=== PATIENT | male | born 1965 | race Asian ===

== ENCOUNTER 2019-11-30 11:16 | Emergency (ER) | payer MEDICARE ==
[~2019-11-30] VITALS: Ht 167.6 cm; Wt 106.6 kg
[2019-11-30] MEDS ORDERED: diphenhydrAMINE HCL 50 MG/ML VIAL ONE (11:46)
[2019-11-30 12:00] LABS: BASOPHILS % (AUTO) 0.5 % (0.0-2.0); HEMATOCRIT 28 % (39-51); HEMOGLOBIN 8.8 g/dL (13.5-17.5); LYMPHOCYTES # (AUTO) 0.9 /CMM (0.8-4.8); LYMPHOCYTES % (AUTO) 12.9 % (20.0-44.0); MEAN CORPUSCULAR HGB CONC 32 g/dl (31.0-36.0); MEAN CORPUSCULAR VOLUME 104 fL (80-96); MONOCYTES # (AUTO) 0.7 /CMM (0.1-1.30); MONOCYTES % (AUTO) 10.2 % (2.0-12.0); NEUTROPHILS # (AUTO) 5.1 /CMM (1.8-8.9); NEUTROPHILS % (AUTO) 74.4 % (43.0-81.0); PLATELET COUNT (AUTO) 362 /CMM (150-450); RED BLOOD CELL COUNT(AUTO) 2.66 MIL/uL (4.5-6.0); WHITE BLOOD COUNT (AUTO) 6.8 K/uL (4.3-11.0)
[2019-11-30] MEDS ORDERED: diphenhydrAMINE HCL 50 MG/ML VIAL IV ONE (12:00)
--- NOTE | 2019-11-30 12:03 | NUR ---
[id number] home c/o dizziness since 10am w/ noted HPB systolic over 200 pt on nightly peritoneal dialysis. Patient a/ox4, breathing even and unlabored, no sob noted. Changed into gown. Dr. Caldwell at bedside for eval.
[2019-11-30 12:25] LABS: CALCIUM, SERUM 8.4 mg/dL (8.5-10.1); CARBON DIOXIDE 25 mmol/L (21-32); CHLORIDE 96 mmol/L (98-107); GLUCOSE 148 mg/dL (74-106); SODIUM SERUM 135 mmol/L (136-145); UREA NITROGEN, BLOOD 75 mg/dL (7-18)
[2019-11-30] MEDS ORDERED: hydrALAZINE HCL IV 20 MG VIAL IV ONE (12:30)
[2019-11-30 12:31] LABS: ALANINE AMINOTRANSFERASE 10 U/L (12-78); ALBUMIN 3.1 g/dL (3.4-5.0); ALKALINE PHOSPHATASE 56 U/L (46-116); ASPARTATE AMINOTRANSFERASE 11 U/L (15-37); BILIRUBIN,DIRECT 0.1 mg/dL (0.0-0.2); BILIRUBIN,TOTAL 0.5 mg/dL (0.2-1.0); TOTAL PROTEIN, SERUM 6.8 g/dL (6.4-8.2)
[2019-11-30 12:33] LABS: CREATININE 11.8 mg/dL (0.6-1.3)
[2019-11-30] MEDS ORDERED: CLONIDINE HCL 0.1 MG TABLET PO ONE (13:00)
[2019-11-30] MEDS ORDERED: MECLIZINE HCL 12.5 MG TABLET PO ONE (13:00)
--- NOTE | 2019-11-30 13:15 | NUR ---
PATIENT RESTING, NO DISTRESS NOTED. VITALS STABLE, DENIES PAIN.
[2019-11-30] MEDS ORDERED: MECLIZINE HCL 25 MG TABLET ONE (13:19)
[2019-11-30] MEDS ORDERED: CLONIDINE HCL 0.1 MG TABLET ONE (13:19)
--- NOTE | 2019-11-30 14:07 | NUR ---
patient's dizziness has improved, vitals stable, no complaints, no distress noted.
--- NOTE | 2019-11-30 14:15 | NUR ---
Patient a/ox4, breathing even and unlabored, no sob noted. IV removed. Catheter intact and site benign. Pressure and 4x4 applied to site. No bleeding noted.Patient discharged to home in stable condition. Written and verbal after care instructions given. Patient verbalizes understanding of instruction.
[2019-11-30 14:17] VITALS: BP 146/103
== END 2019-11-30 14:17 | disposition home or self-care (01) ==
LOC: ER 11:22
DX: I12.0 Hypertensive chronic kidney disease with stage 5 chronic kidney disease or end stage renal disease (principal); E11.22 Type 2 diabetes mellitus with diabetic chronic kidney disease; N18.6 End stage renal disease; R42 Dizziness and giddiness; I45.10 Unspecified right bundle-branch block; E78.00 Pure hypercholesterolemia, unspecified; E66.01 Morbid (severe) obesity due to excess calories; Z68.37 Body mass index [BMI] 37.0-37.9, adult; Z99.2 Dependence on renal dialysis
CPT/HCPCS: 36415; 70450; 71045; 80048; 80076; 84484; 85025; 93005; 96374; 99285; J1200; J8597

== ENCOUNTER 2020-01-30 20:37 | Emergency (ER) | payer MEDICARE, BC ==
[~2020-01-30] VITALS: Ht 167.6 cm; Wt 108.0 kg
--- NOTE | 2020-01-30 21:00 | NUR ---
BIBS FROM HOME TO ER BED 7. AAOX4. NOT IN RESP DISTRESS, BREATHING EVEN AND UNLABORED. AMBULATORY. CAME IN FOR C/O ELEVATED BP FOR THE PAST 3 DAYS. PT REPORTS THAT HIS BP HAS BEEN NOTED WITH SBP OF 180-220s. WITH LAST ONE PRIOR TO ARRIVAL AT 220/118. PT REPORTS THAT HE TOOK CLONIDINE 0.1MG PO X 1HR RESEARCH ENGINEER MARINE EQUIPMENT. PT IS NOTED WITH BP OF 181/121 DURING ASSESSMENT. DENIES ANY CHEST PAIN. PT IS ON PERITONEAL DIALYSIS EVERYDAY. MD HAUSER AT THE BEDSIDE FOR EVAL. AWAITING ORDERS
[2020-01-30] MEDS ORDERED: LABETALOL 20 MG/4 ML VIAL IV ONE (21:15)
[2020-01-30] MEDS ORDERED: LABETALOL HCL IV 100MG VIAL ONE (21:18)
[2020-01-30 21:20] LABS: BASOPHILS # (AUTO) 0.1 /CMM (0.0-0.2); BASOPHILS % (AUTO) 0.8 % (0.0-2.0); EOSINOPHILS % (AUTO) 3.1 % (0.0-6.0); HEMATOCRIT 29 % (39-51); HEMOGLOBIN 9.6 g/dL (13.5-17.5); LYMPHOCYTES # (AUTO) 0.7 /CMM (0.8-4.8); LYMPHOCYTES % (AUTO) 11.5 % (20.0-44.0); MEAN CORPUSCULAR HGB CONC 33 g/dl (31.0-36.0); MEAN CORPUSCULAR VOLUME 102 fL (80-96); MONOCYTES # (AUTO) 0.4 /CMM (0.1-1.30); MONOCYTES % (AUTO) 7.2 % (2.0-12.0); NEUTROPHILS # (AUTO) 4.8 /CMM (1.8-8.9); NEUTROPHILS % (AUTO) 77.4 % (43.0-81.0); PLATELET COUNT (AUTO) 316 /CMM (150-450); RED BLOOD CELL COUNT(AUTO) 2.88 MIL/uL (4.5-6.0); WHITE BLOOD COUNT (AUTO) 6.2 K/uL (4.3-11.0)
--- NOTE | 2020-01-30 21:26 | NUR ---
PT NOTED WITH HR OF 59 ON CADIAC MONITOR. MD MADE AWARE AND ORDERS TO HOLD LABETALOL
[2020-01-30 21:30] LABS: CALCIUM, SERUM 7.5 mg/dL (8.5-10.1); POTASSIUM 4.3 mmol/L (3.5-5.1)
[2020-01-30] MEDS ORDERED: hydrALAZINE HCL IV 20 MG VIAL IV ONE (21:30)
[2020-01-30 21:32] LABS: CREATININE 13.9 mg/dL (0.6-1.3)
[2020-01-30] MEDS ORDERED: NIFEdipine XL (30MG) 30 MG TAB PO STA (21:47)
[2020-01-30] MEDS ORDERED: ENALAPRILAT INJ (1.25 MG/ML) 1.25 MG/ML VIAL IV ONE (21:49)
[2020-01-30] MEDS ORDERED: ENALAPRILAT DIHYD. (2.5MG/ML) 1.25 MG/ML VIAL IV ONE (22:00)
[2020-01-30] MEDS ORDERED: NIFEdipine XL (30MG) 30 MG TAB PO ONE (22:11)
--- NOTE | 2020-01-30 22:20 | NUR ---
PROCARDIA 30MG XL TAKEN FROM ICU OMNICELL
--- NOTE | 2020-01-30 22:51 | NUR ---
PTS BP IS TRENDING DOWN. MEDICALLY CLEARED FOR DISCHARGE. MD AWARE OF BP 173/96. PT RECEIVED PROCARDIA 30MG XL.
--- NOTE | 2020-01-30 22:51 | NUR ---
Note balbir in EDM - 01/30/20 at 2251 by JENN PTS BP IS TRENDING DOWN. MEDICALLY CLEARED FOR DISCHARGE. AWARE OF BP 173/96.
--- NOTE | 2020-01-30 22:52 | NUR ---
Patient discharged to home in stable condition. Written and verbal after care instructions given. Patient verbalizes understanding of instruction.IV removed. Catheter intact and site benign. Pressure and 4x4 applied to site. No bleeding noted. Pt ambulatory with a steady gait
[2020-01-30 22:58] VITALS: BP 173/96
== END 2020-01-30 22:58 | disposition home or self-care (01) ==
LOC: ER 20:42
DX: I12.9 Hypertensive chronic kidney disease with stage 1 through stage 4 chronic kidney disease, or unspecified chronic kidney disease (principal); E11.22 Type 2 diabetes mellitus with diabetic chronic kidney disease; N18.9 Chronic kidney disease, unspecified; D64.9 Anemia, unspecified; I25.10 Atherosclerotic heart disease of native coronary artery without angina pectoris; Z99.2 Dependence on renal dialysis; Z95.5 Presence of coronary angioplasty implant and graft
CPT/HCPCS: 36415; 80048; 85025; 96374; 99285; J3490 ×2

== ENCOUNTER 2021-09-09 20:18 | Inpatient (IN) | payer MEDICARE, OTHER ==
[~2021-09-09] VITALS: Ht 167.6 cm; Wt 114.8 kg
--- NOTE | 2021-09-09 20:40 | NUR ---
BIBS FOR C/O DIZZINESS, NAUSEA AND LOW BP FOR THE PST 10 DAYS. ON DAILY PERTONEAL DIALYSISON DAILY PERITONEAL DIALYSIS; HD PORT TO R ABD. A/OX3. TOLREATING R/A WELL WITH NO SOB AT 99%. CONNECTED PT POX AND MONITOR. SAFETY MEASURES IN PLACE.
--- NOTE | 2021-09-09 21:10 | NUR ---
LAC #20G S/L; PATENT AND INTACT. BLOOD COLLECTED AND SENT TO LAB
--- NOTE | 2021-09-09 21:14 | NUR ---
FINANCIAL SERVICES MANAGER AT PT'S BEDSIDE
[2021-09-09 21:19] LABS: BASOPHILS # (AUTO) 0.1 K/uL (0.0-0.2); BASOPHILS % (AUTO) 0.5 % (0.0-2.0); EOSINOPHILS % (AUTO) 1.2 % (0.0-6.0); HEMATOCRIT 24 % (39-51); HEMOGLOBIN 7.9 g/dL (13.5-17.5); LYMPHOCYTES % (AUTO) 6.2 % (20.0-44.0); MEAN CORPUSCULAR HGB CONC 33 g/dl (31.0-36.0); MEAN CORPUSCULAR VOLUME 100 fL (80-96); MONOCYTES # (AUTO) 0.8 K/uL (0.1-1.30); MONOCYTES % (AUTO) 4.5 % (2.0-12.0); NEUTROPHILS # (AUTO) 14.9 K/uL (1.8-8.9); NEUTROPHILS % (AUTO) 87.6 % (43.0-81.0); PLATELET COUNT (AUTO) 340 K/uL (150-450); RED BLOOD CELL COUNT(AUTO) 2.41 MIL/uL (4.5-6.0)
--- NOTE | 2021-09-09 21:31 | NUR ---
PT RETURNED TO ER BED [address]
[2021-09-09 21:36] LABS: ALBUMIN 2.4 g/dL (3.4-5.0); BILIRUBIN,DIRECT 0.7 mg/dL (0.0-0.2); BILIRUBIN,TOTAL 1.2 mg/dL (0.2-1.0); POTASSIUM 4.1 mmol/L (3.5-5.1); TOTAL PROTEIN, SERUM 7.6 g/dL (6.4-8.2)
[2021-09-09 21:56] LABS: CREATININE 13.8 mg/dL (0.6-1.3)
--- NOTE | 2021-09-09 22:13 | NUR ---
DR. JESSICA DOMÍNGUEZ AT PT'S BEDSIDE
--- NOTE | 2021-09-09 22:41 | NUR ---
PT TAKEN TO CT VIA [facility]
--- NOTE | 2021-09-09 22:51 | NUR ---
COVID SWAB DONE AND SENT TO LAB
[2021-09-09 22:53] LABS: BAND % (MANUAL) 2 % (0.0-5.0); LYMPHOCYTES % (MANUAL) 8 % (16-48)
[2021-09-09 22:54] LABS: MONOCYTES % (MANUAL) 4 % (0-11.0); NEUTROPHILS % (MANUAL) 86 (42-76)
[2021-09-09] MEDS ORDERED: MORPHINE SULFATE INJ 2 MG/ML DISP.SYRIN ONE (23:39)
[2021-09-10] MEDS ORDERED: MORPHINE SULFATE INJ 2 MG/ML DISP.SYRIN IV ONE
[2021-09-10] MEDS ORDERED: MAGNESIUM HYDROXIDE 30 ML UDC PO PRN (01:00)
[2021-09-10] MEDS ORDERED: Z GUARD REMEDY 4 OZ OINT TP PRN (01:00)
[2021-09-10] MEDS ORDERED: ONDANSETRON HCL/PF 4 MG/2 ML VIAL IVP PRN (01:00)
[2021-09-10] MEDS ORDERED: ZOLPIDEM TARTRATE 5 MG TABLET PO PRN (01:00)
[2021-09-10] MEDS ORDERED: MAG HYDROX/AL HYDROX/SIMETH 30 ML UDC PO PRN (01:00)
[2021-09-10] MEDS ORDERED: CEFTRIAXONE 1GM BAG (ER ONLY) 50 ML IV ONE (02:43)
--- NOTE | 2021-09-10 02:44 | NUR ---
OFFERED PT URINAL; NOT ABLE TO PROVIDE URINE SAMPLE AT THIS TIME.
[2021-09-10] MEDS: CEFTRIAXONE 1 G in IV D5W 50 ML IV SCH (02:50)
[2021-09-10] MEDS ORDERED: HYDROCODONE/APAP 10/325MG TABLET ONE ×2 (02:54→07:32)
[2021-09-10] MEDS: HYDROCODONE/APAP 10/325MG TABLET PO PRN ×2 (02:57→07:37)
[2021-09-10] MEDS ORDERED: LABE100T5 PO (03:13)
[2021-09-10] MEDS ORDERED: ALLO300T2 PO (03:13)
[2021-09-10] MEDS ORDERED: DOCU100C36 PO (03:13)
[2021-09-10] MEDS ORDERED: AMLO-213 PO (03:13)
[2021-09-10] MEDS ORDERED: LABE200T5 PO (03:13)
[2021-09-10] MEDS ORDERED: ASPI-1169 PO (03:13)
[2021-09-10] MEDS ORDERED: CLON0.1T PO (03:13)
[2021-09-10] MEDS ORDERED: CALC667T2 PO (03:13)
[2021-09-10] MEDS ORDERED: HYDR-4303 PO (03:13)
[2021-09-10] MEDS ORDERED: LEVO112T2 PO (03:13)
[2021-09-10] MEDS ORDERED: PANT40TA2 PO (03:47)
[2021-09-10] MEDS ORDERED: FOLI0.8T23 PO (03:47)
[2021-09-10] MEDS ORDERED: CINA90TA PO (03:47)
[2021-09-10] MEDS ORDERED: LOVA40TA2 PO (03:47)
[2021-09-10] MEDS ORDERED: LOSA100T31 PO (03:47)
[2021-09-10] MEDS ORDERED: SEMA3TAB (03:47)
[2021-09-10] MEDS ORDERED: SEVE800T8 PO (03:47)
[2021-09-10] MEDS ORDERED: DOCUSATE SODIUM 100 MG CAPSULE PO PRN (05:00)
[2021-09-10] MEDS ORDERED: CLONIDINE HCL 0.1 MG TABLET PO PRN (05:00)
[2021-09-10] MEDS ORDERED: HYDROCODONE/APAP 5/325MG TABLET PO SCH (05:00)
--- NOTE | 2021-09-10 07:42 | NUR ---
ROOM 304-1
[2021-09-10] MEDS ORDERED: PANTOPRAZOLE 40 MG TABLET.DR PO ONE (07:45)
[2021-09-10] MEDS: PANTOPRAZOLE 40 MG TABLET.DR PO SCH ×2 (07:49→10:00)
--- NOTE | 2021-09-10 07:57 | NUR ---
REPORT GIVEN TO MILIND FOR ANA
--- NOTE | 2021-09-10 08:07 | NUR ---
PATIENT TRANSFERRED TO TELE ROOM 304-1.
[2021-09-10] MEDS ORDERED: LABETALOL HCL (100MG) 100 MG TABLET PO SCH (09:00)
[2021-09-10 09:10] VITALS: BP 169/88
[2021-09-10] MEDS ORDERED: DEXTROSE 50%-WATER 50 ML DISP.SYRIN IV PRN (10:00)
[2021-09-10] MEDS: ALLOPURINOL 100 MG TABLET PO SCH (10:00)
[2021-09-10] MEDS: CINACALCET HCL 30 MG TABLET PO SCH (10:02)
[2021-09-10] MEDS: LOSARTAN POTASSIUM 50 MG TABLET PO SCH (10:02)
[2021-09-10] MEDS: SEVELAMER CARBONATE 800 MG TABLET PO SCH ×3 (10:03→18:05)
[2021-09-10] MEDS: VIT B CMPLX 3/FA/VIT C/BIOTIN 1 TAB TABLET PO SCH (10:03)
[2021-09-10] MEDS: ASPIRIN 81 MG TAB.CHEW PO SCH (10:03)
[2021-09-10] MEDS: CALCIUM ACETATE 667 MG CAP/TAB PO SCH ×3 (10:08→18:04)
--- NOTE | 2021-09-10 10:46 | NUR ---
AGRICULTURAL PLOW OPERATOR/MED RECON UPDATED HOME MEDICATION INFORMATION OBTAINED FROM THE PATIENT. DR. SMITH MADE AWARE WITH NEW ORDER. PHARMACY AND PRIMARY RN AWARE.
[2021-09-10 12:00] VITALS: BP 153/81
[2021-09-10] MEDS: BLOOD SUGAR DIAGNOSTIC 1 EACH STRIP IN SCH ×3 (12:05→22:25)
[2021-09-10] MEDS: BLOOD SUGAR DIAGNOSTIC 1 EACH STRIP VI SCH ×2 (12:22→17:55)
[2021-09-10] MEDS: INSULIN REGULAR, HUMAN 100 UNIT/ML 3 ML VIAL SQ PRN (12:31)
[2021-09-10] MEDS: LABETALOL HCL (100MG) 100 MG TABLET PO SCH ×2 (12:35→18:05)
[2021-09-10] MEDS: AMLODIPINE BESYLATE 10 MG TABLET PO SCH (12:36)
[2021-09-10 16:00] VITALS: BP 151/79
[2021-09-10] MEDS: ACETAMINOPHEN 325 MG TABLET PO PRN ×2 (16:34→22:37)
--- NOTE | 2021-09-10 16:40 | NUR ---
dr. davidson in earlier talking to pt. about hemodialysis and temporary cath placement.consents signed.at this time temp 101.7 and given tylenol 650 mg po.no dialysate available for peritoneal dialysis.
--- NOTE | 2021-09-10 16:40 | NUR ---
dr. barrow here and aware of temp.
--- NOTE | 2021-09-10 18:00 | NUR ---
pt with oliguria,no void,still waiting for urine spec.
--- NOTE | 2021-09-10 18:10 | NUR ---
NO SLIDING SCALE COVERAGE AT DINNER PT. NPO.
--- NOTE | 2021-09-10 19:49 | NUR ---
MATERIAL COORDINATOR OPENING RECEIVED PATIENT IN BED, CYMRO SPEAKING. ALERT AND ORIENTED. NO S/S OF APPARENT DISTRESS IN ROOM AIR. DENIES PAIN AT THIS TIME. TELE MONITOR READING SINUS TACH WITH 104 BPM. NO FLUIDS RUNNING AT6 THIS TIME. RE-ORIENTED WITH THE USE OF CALL LIGHT. SAFETY IN PLACE. WILL CONT. WITH PATIENT'S CARE PLAN.
[2021-09-10 19:54] VITALS: BP 148/84
--- NOTE | 2021-09-10 20:00 | NUR ---
NOZZLE WORKER NOTE PATIENT TEMPERATURE 101.9, COOLING MEASURES INITIATED. TYLENOL NOT DUE YET. WILL MONITOR.
[2021-09-10] MEDS: ATORVASTATIN 10 MG TABLET PO SCH (22:20)
[2021-09-10] MEDS: *INSULIN REGULAR(HUMULIN R)HUM 100 UNIT/ML VIAL SQ PRN (23:31)
--- NOTE | 2021-09-10 23:35 | NUR ---
MANAGER PRIMARY NOTE TEMP. WENT DOWN TO 99.2 AFTER TYLENOL AND COOLING MEASURES. WILL CONTINUE TO MONITOR.
[2021-09-10 23:49] VITALS: BP 114/67
[2021-09-11] MEDS: CEFTRIAXONE 1 G in IV D5W 50 ML IV SCH (01:58)
[2021-09-11 04:29] VITALS: BP 135/83
[2021-09-11 06:17] LABS: BASOPHILS % (AUTO) 0.1 % (0.0-2.0); EOSINOPHILS % (AUTO) 1.4 % (0.0-6.0); HEMATOCRIT 23 % (39-51); HEMOGLOBIN 7.7 g/dL (13.5-17.5); LYMPHOCYTES # (AUTO) 0.7 K/uL (0.8-4.8); LYMPHOCYTES % (AUTO) 3.4 % (20.0-44.0); MEAN CORPUSCULAR HGB CONC 33 g/dl (31.0-36.0); MEAN CORPUSCULAR VOLUME 99 fL (80-96); MONOCYTES # (AUTO) 0.8 K/uL (0.1-1.30); MONOCYTES % (AUTO) 4.1 % (2.0-12.0); NEUTROPHILS # (AUTO) 18.9 K/uL (1.8-8.9); PLATELET COUNT (AUTO) 312 K/uL (150-450); RED BLOOD CELL COUNT(AUTO) 2.36 MIL/uL (4.5-6.0); WHITE BLOOD COUNT (AUTO) 20.8 K/uL (4.3-11.0)
[2021-09-11 06:23] LABS: ALBUMIN 2.1 g/dL (3.4-5.0); BILIRUBIN,TOTAL 3.3 mg/dL (0.2-1.0); CALCIUM, SERUM 8.4 mg/dL (8.5-10.1); MAGNESIUM 1.7 mg/dL (1.8-2.4); PHOSPHORUS 6.8 mg/dL (2.5-4.9); POTASSIUM 4.2 mmol/L (3.5-5.1); TOTAL PROTEIN, SERUM 6.7 g/dL (6.4-8.2)
[2021-09-11] MEDS: BLOOD SUGAR DIAGNOSTIC 1 EACH STRIP IN SCH ×4 (06:36→22:24)
[2021-09-11] MEDS: INSULIN REGULAR, HUMAN 100 UNIT/ML 3 ML VIAL SQ PRN (06:37)
--- NOTE | 2021-09-11 06:42 | NUR ---
CHIEF OPERATOR SYNTHESIS NOTE CRITICAL LAB VALUE OF BUN 85, CREATININE 17 REPORTED TO BISQUE KILN DRAWER ANDRES PINEDO NP. NO NEW ORDERS.
--- NOTE | 2021-09-11 07:30 | NUR ---
SHORT ORDER FRY COOK OPENING NOTES RECEIVED PATIENT RESTING ON BED AND A/O X4. ON ROOM AIR TOLERATING WELL. NO SOB NOTED. NOT IN DISTRESS. WITH NO COMPLAINTS OF PAIN OR DISCOMFORT AT THIS TIME. WITH IV ACCESS AT LEFT AC G20 SALINE LOCKED, PATENT AND INTACT. ON TELE MONITOR CURRENTLY READING SINUS RHYTHM WITH BBBs AND PVCs AT 82BPM. SAFETY MEASURES IN PLACED. CALL LIGHT WITHIN REACH. BED ON LOWEST LOCKED POSITION, SIDE RAILS UP X2. WILL CONTINUE TO MONITOR.
[2021-09-11 08:00] VITALS: BP 116/68
[2021-09-11] MEDS: CALCIUM ACETATE 667 MG CAP/TAB PO SCH ×3 (09:15→18:00)
[2021-09-11] MEDS: LABETALOL HCL (100MG) 100 MG TABLET PO SCH ×3 (09:17→17:00)
[2021-09-11] MEDS: AMLODIPINE BESYLATE 10 MG TABLET PO SCH (09:18)
[2021-09-11] MEDS: CINACALCET HCL 30 MG TABLET PO SCH (09:19)
[2021-09-11] MEDS: ALLOPURINOL 100 MG TABLET PO SCH (09:19)
[2021-09-11] MEDS: PANTOPRAZOLE 40 MG TABLET.DR PO SCH ×2 (09:21→16:30)
[2021-09-11] MEDS: ASPIRIN 81 MG TAB.CHEW PO SCH (09:21)
[2021-09-11] MEDS: LEVOTHYROXINE SODIUM 112 MCG TABLET PO SCH (09:21)
[2021-09-11] MEDS: SEVELAMER CARBONATE 800 MG TABLET PO SCH ×3 (09:22→18:00)
[2021-09-11] MEDS: LOSARTAN POTASSIUM 50 MG TABLET PO SCH (09:24)
[2021-09-11] MEDS: VIT B CMPLX 3/FA/VIT C/BIOTIN 1 TAB TABLET PO SCH (09:24)
[2021-09-11 12:00] VITALS: BP 133/67
[2021-09-11 16:04] VITALS: BP 96/57
[2021-09-11] MEDS ORDERED: MORPHINE SULFATE INJ 2 MG/ML DISP.SYRIN IV ONE (17:00)
[2021-09-11] MEDS ORDERED: CELLULOSE,OXIDIZED 1 PKT EACH MC ONE (18:30)
--- NOTE | 2021-09-11 19:05 | NUR ---
CXR confirmed placement of HD catheter, with order OK to use from Julio Jesus. Bleeding still noted from [facility] HD catheter site, Julio Jesus aware per Mandy RN, Judah ROSAS at bedside and placed surgicel to site to stop bleeding. Dr Christian aware and ordered may use catheter for HD treatment tonight..
--- NOTE | 2021-09-11 19:30 | NUR ---
HATCH TENDER CLOSING NOTES PATIENT IN BED ON HEMODIALYSIS THAT STARTED AT 1855. HD CATH INSERTED BY DR. FELIX THIS PM. PT. STARTED TO BLEED FROM THE HD CATH INSERTION SITE A FEW MINUTES AFTER THE HD CATH WAS INSERTED. PRESSURE AND ICE PACK APPLIED. BLEEDING HAVE STOPPED AT THIS TIME. BP AT 109/66 WITH HR OF 77 AT 1915. NO COMPLAINS OF DIZZINESS. PT. IS A/OX4, ABLE TO MAKE NEEDS KNOWN; NO PAIN AT THIS TIME; NO DISTRESS NOTED; PATIENT TOLERATING ROOM AIR WELL, NO SOB NOTED; BREATHING EVEN AND UNLABORED; TELE MONITOR READS NSR AT 75BPM; IV ON LEFT AC #20 SALINE LOCKED, INTACT AND PATENT, FLUSHING WELL; NO S/S OF REDNESS OR INFILTRATION NOTED; SAFETY PRECAUTIONS IMPLEMENTED; BED LOCKED IN LOW POSITION; SIDE RAILSX2, CALL LIGHT WITHIN REACH; WILL ENDORSE CONTINUITY OF CARE TO ONCOMING SHIFT
--- NOTE | 2021-09-11 19:33 | NUR ---
ACCOUNT SERVICE ASSOCIATE NOTE RECEIVED PATIENT IN ROOM CURRENTLY HAVING DIALYSIS. TELE MONITOR READING SR WITH PVC's WILL CONTINUE WITH PATIENT'S CARE PLAN.
[2021-09-11 20:00] VITALS: BP 123/74
--- NOTE | 2021-09-11 21:10 | NUR ---
INFORMATION SECURITY MANAGER NOTE HEMODIALYSIS FINISHED AT THIS TIME. 1L OUT PER SERENE ADAMSON RN. V/S FOLLOWS: 131/69, HR-80, RR-20, T-97.6. PATIENT DENIES PAIN AND ANY DISCOMFORT AT THIS TIME, ENCOURAGED TO VERBALIZED FEELINGS. WILL CARRY OUT POST DIALYSIS ORDERS.
[2021-09-11] MEDS ORDERED: VANCOMYCIN 1 GM in IV D5W 250ml IV ONE (22:00)
--- NOTE | 2021-09-11 22:00 | NUR ---
MECHANICAL SYSTEMS DESIGN ENGINEER NOTE ANDRIY JEFFERSON FROM ICU WENT TO CHECK PATIENT CATHETER SITE, STILL ACTIVELY BLEEDING. PRESSURE DRESSING IN PLACE. WILL CONTINUE TO MONITOR.
[2021-09-11] MEDS: CEFEPIME 1 GM in IV D5W 50 ML IV SCH (22:05)
[2021-09-11] MEDS: ATORVASTATIN 10 MG TABLET PO SCH (22:15)
[2021-09-11] MEDS: *INSULIN REGULAR(HUMULIN R)HUM 100 UNIT/ML VIAL SQ PRN (22:25)
--- NOTE | 2021-09-11 22:56 | NUR ---
EXPERIMENTAL WELDER NOTE PATIENT C/O DIZZINESS. MANAGED TO STOP ACTIVE BLEEDING FROM CATH SITE, PRESSURE AND ICE IN PLACE. V/S: 152/85, HR 89, RR-20, T-98.9. SATURATION 90-93%, STARTED IN 2LPM OF O2 TO KEEP SPO2 >94%. WILL MONITOR FOR NOW.
[2021-09-11 23:03] LABS: HEMOGLOBIN 7.5 g/dL (13.5-17.5)
[2021-09-12] VITALS (7 sets, daily range): BP systolic 131–155; BP diastolic 74–88
[2021-09-12 06:15] LABS: BASOPHILS % (AUTO) 0.3 % (0.0-2.0); EOSINOPHILS % (AUTO) 2.2 % (0.0-6.0); HEMATOCRIT 22 % (39-51); HEMOGLOBIN 7.1 g/dL (13.5-17.5); LYMPHOCYTES # (AUTO) 0.6 K/uL (0.8-4.8); LYMPHOCYTES % (AUTO) 4.8 % (20.0-44.0); MEAN CORPUSCULAR HGB CONC 33 g/dl (31.0-36.0); MEAN CORPUSCULAR VOLUME 98 fL (80-96); MONOCYTES # (AUTO) 0.8 K/uL (0.1-1.30); MONOCYTES % (AUTO) 6.1 % (2.0-12.0); NEUTROPHILS # (AUTO) 11.1 K/uL (1.8-8.9); NEUTROPHILS % (AUTO) 86.6 % (43.0-81.0); PLATELET COUNT (AUTO) 298 K/uL (150-450); RED BLOOD CELL COUNT(AUTO) 2.19 MIL/uL (4.5-6.0); WHITE BLOOD COUNT (AUTO) 12.8 K/uL (4.3-11.0)
[2021-09-12 06:39] LABS: CHOLESTEROL 172 mg/dL (<200); LDL 106 mg/dL (0-99); TRIGLYCERIDES 437 mg/dL (30-150)
[2021-09-12 06:40] LABS: ALANINE AMINOTRANSFERASE 135 U/L (12-78); ALBUMIN 1.9 g/dL (3.4-5.0); ALKALINE PHOSPHATASE 613 U/L (46-116); ASPARTATE AMINOTRANSFERASE 102 U/L (15-37); BILIRUBIN,DIRECT 2.8 mg/dL (0.0-0.2); BILIRUBIN,TOTAL 3.5 mg/dL (0.2-1.0); CALCIUM, SERUM 8.4 mg/dL (8.5-10.1); CARBON DIOXIDE 28 mmol/L (21-32); CHLORIDE 91 mmol/L (98-107); GLUCOSE 139 mg/dL (74-106); LIPASE 542 U/L (73-393); MAGNESIUM 1.9 mg/dL (1.8-2.4); PHOSPHORUS 4.8 mg/dL (2.5-4.9); POTASSIUM 3.8 mmol/L (3.5-5.1); SODIUM SERUM 131 mmol/L (136-145); TOTAL PROTEIN, SERUM 6.2 g/dL (6.4-8.2); UREA NITROGEN, BLOOD 64 mg/dL (7-18)
[2021-09-12 06:47] LABS: CREATININE 13.3 mg/dL (0.6-1.3)
[2021-09-12] MEDS: BLOOD SUGAR DIAGNOSTIC 1 EACH STRIP IN SCH ×4 (06:50→21:48)
[2021-09-12] MEDS: INSULIN REGULAR, HUMAN 100 UNIT/ML 3 ML VIAL SQ PRN ×3 (06:51→17:39)
--- NOTE | 2021-09-12 06:58 | NUR ---
BRUSH HOLDER ASSEMBLER CLOSING NOTE PATIENT IN BED, A/OX4. NO S/S OF APPARENT DISTRESS IN 2LPM OF O2 VIA NC TO KEEP SPO2 >94%. DENIES ANY PAIN AND DISCOMFORT NOR DIZZINESS. PRESSURE DSG IN PLACE, SOILED, OTHERWISE INTACT. BLEEDING OCCURS WHEN PATIENT MOVE A LOT. TELE MONITOR READING SR WITH BBB AND 3 PVC'S THROUGHOUT THE NIGHT. NO FEVER THROUGHOUT SHIFT. NO FLUIDS RUNNING AT THIS TIME. NEEDS ATTENDED. ALL SCHEDULED MEDICATION ADMINISTERED. WILL ENDORSE TO MORNING SHIFT RN FOR CONTINUITY OF CARE.
[2021-09-12 07:42] LABS: HDL CHOLESTEROL < 10 mg/dL (40-60)
--- NOTE | 2021-09-12 08:06 | NUR ---
RN OPENING NOTE PATIENT RECEIVED IN BED, AO X 4, ABLE TO RESPONDS ALL STIMULI. IN NO ACUTE DISTRESS NOTED. RESPIRATORY EVEN AND UNLABORED ON OXYGEN AT 2Ls VIA NC. SKIN IS WARM TO TOUCH, KEEP CLEAN/DRY. NO ACTIVE BLEEDING ON RIGHT JUGULAR VAS CATH AT THIS TIME. KEPT ELEVATED HOB FOR ENSURE AIRWAY AND ASPIRATION PRECAUTION, ALSO LOWEST POSITION OF THE BED, S/R UP X 3, BED ALARM IS ON AT ALL THE TIMES. ALL SAFETY PRECAUTION APPLIED. CALL LIGHT WITHIN REACH, WILL CONTINUE TO MONITOR.
[2021-09-12] MEDS: CINACALCET HCL 30 MG TABLET PO SCH (08:50)
[2021-09-12] MEDS: ALLOPURINOL 100 MG TABLET PO SCH (08:50)
[2021-09-12] MEDS: SEVELAMER CARBONATE 800 MG TABLET PO SCH ×3 (08:50→17:39)
[2021-09-12] MEDS: VIT B CMPLX 3/FA/VIT C/BIOTIN 1 TAB TABLET PO SCH (08:50)
[2021-09-12] MEDS: CALCIUM ACETATE 667 MG CAP/TAB PO SCH ×3 (08:50→17:39)
[2021-09-12] MEDS: PANTOPRAZOLE 40 MG TABLET.DR PO SCH ×2 (08:52→16:30)
[2021-09-12] MEDS: LEVOTHYROXINE SODIUM 112 MCG TABLET PO SCH (08:52)
[2021-09-12] MEDS: AMLODIPINE BESYLATE 10 MG TABLET PO SCH (09:00)
[2021-09-12] MEDS: LABETALOL HCL (100MG) 100 MG TABLET PO SCH ×3 (09:00→17:40)
[2021-09-12] MEDS: ASPIRIN 81 MG TAB.CHEW PO SCH (09:00)
[2021-09-12] MEDS: LOSARTAN POTASSIUM 50 MG TABLET PO SCH (09:00)
--- NOTE | 2021-09-12 09:01 | NUR ---
PATIENT SCHEDULED HD, WILL HOLD BP MEDS, ALSO HOLD ASPIRIN FOR BLEEDING PROPHYLAXIS.
[2021-09-12 10:34] LABS: BAND % (MANUAL) 1 % (0.0-5.0); EOSINOPHILS % (MANUAL) 3 % (0-4); LYMPHOCYTES % (MANUAL) 5 % (16-48); MONOCYTES % (MANUAL) 8 % (0-11.0); NEUTROPHILS % (MANUAL) 83 (42-76)
[2021-09-12] MEDS: VANCOMYCIN POST DIALYSIS 500MG IV PRN ×2 (15:10)
--- NOTE | 2021-09-12 18:35 | NUR ---
RN CLOSING NOTE PATIENT IN BED RESTING, IN NO ACUTE DISTRESS OBSERVED. RESPIRATORY EVEN AND UNLABORED ON OXYGEN AT 2Ls VIA NC. SKIN IS WARM TO TOUCH, KEEP CLEAN/DRY, INTACT NEW MIDLINE SITE. DONE HD AND 1000ML OUTPUT. NO ACTIVE BLEEDING OBSERVED FROM NEW HD ACCESS ON RIGHT JAGUAR VEIN. KEPT ELEVATED HOB FOR ENSURE AIRWAY AND ASPIRATION PRECAUTION. ALSO LOWEST POSITION OF THE BED FOR SAFETY. BED ALARM IS ON AT ALL THE TIMES FOR SAFETY. CALL LIGHT WITHIN REACH, WILL ENDORSE TO WINE SALES REPRESENTATIVE.
--- NOTE | 2021-09-12 19:05 | NUR ---
COMMUNITY HEALTH NAVIGATOR OPENING NOTES: RECEIVED PATIENT IN BED, AWAKE, A/O X4. NO S/S OF DISTRESS NOTED. NO COMPLAIN OF PAIN. CALL LIGHT WITHIN REACH. BED IN LOWEST AND LOCKED POSITION. HOB ELEVATED. WITH RIGHT ABDOMEN PERITONEAL TUBING INTACT, DRESSING IS CLEAN, DRY AND INTACT, TUBING SECURED WITH TAPE. O2 AT 2L/MIN NASAL CANNULA. WITH RIGHT IJ DIALYSIS CATHETER INTACT, NO BLEEDING NOTED, DRESSING IS CLEAN, DRY AND INTACT. ON TELE MONITOR WITH SINUS WITH BBB AND PVC'S 81.
[2021-09-12] MEDS: CEFEPIME 1 GM in IV D5W 50 ML IV SCH (21:45)
[2021-09-12] MEDS: *INSULIN REGULAR(HUMULIN R)HUM 100 UNIT/ML VIAL SQ PRN (21:47)
[2021-09-12] MEDS: ATORVASTATIN 10 MG TABLET PO SCH (21:49)
[2021-09-13 04:00] VITALS: BP 141/82
[2021-09-13] MEDS: HYDROCODONE/APAP 10/325MG TABLET PO PRN (06:33)
[2021-09-13] MEDS: INSULIN REGULAR, HUMAN 100 UNIT/ML 3 ML VIAL SQ PRN ×3 (06:41→17:36)
[2021-09-13] MEDS: BLOOD SUGAR DIAGNOSTIC 1 EACH STRIP IN SCH ×4 (06:42→21:48)
[2021-09-13] MEDS: PANTOPRAZOLE 40 MG TABLET.DR PO SCH ×2 (07:16→16:32)
[2021-09-13] MEDS: LEVOTHYROXINE SODIUM 112 MCG TABLET PO SCH (07:16)
--- NOTE | 2021-09-13 07:22 | NUR ---
ELECTRICAL EQUIPMENT ASSEMBLER OPENING NOTES: RECEIVED PATIENT IN BED, AWAKE, IN NO ACUTE SIGN OF DISTRESS. A/O X4. ABLE TO MAKE NEEDS KNOWN. ON 02 2L/MIN NC. RIGHT IJ DIALYSIS CATHETER NOTED. NO BLEEDING OBSERVED. DRESSING CLEAN, DRY AND INTACT. BREATHING EVEN AND UNLABORED AT THIS TIME. ON TELE MONITOR, READS NSR WITH BBB'S AT 82 BPM. NO COMPLAINTS OF CARDIAC DISTRESS AT THIS TIME. PT. HAS RIGHT ABDOMEN PERITONEAL TUBING INTACT. DRESSING IS CLEAN, DRY AND INTACT AND SECURED WITH TAPE. PT. IS ANURIC. BOWEL SOUNDS PRESENT IN ALL 4 QUADRANTS. PT. HAS LEFT AC #20 SALINE LOCKED. PATENT AND FLUSHING WELL. VERBALIZED ABDOMINAL PAIN BUT TOLERABLE AT THIS TIME. CALL LIGHT WITHIN REACH. BED IN LOWEST AND LOCKED POSITION. HOB ELEVATED. WILL CONTINUE TO MONITOR.
[2021-09-13 08:00] VITALS: BP 150/94
[2021-09-13 08:10] LABS: CALCIUM, SERUM 9.1 mg/dL (8.5-10.1); PHOSPHORUS 3.1 mg/dL (2.5-4.9); POTASSIUM 3.6 mmol/L (3.5-5.1)
[2021-09-13 08:17] LABS: CREATININE 9.1 mg/dL (0.6-1.3)
[2021-09-13 08:18] LABS: ALBUMIN 1.8 g/dL (3.4-5.0); TOTAL PROTEIN, SERUM 5.9 g/dL (6.4-8.2)
[2021-09-13] MEDS: LOSARTAN POTASSIUM 50 MG TABLET PO SCH (08:27)
[2021-09-13] MEDS: SEVELAMER CARBONATE 800 MG TABLET PO SCH ×3 (08:27→17:38)
[2021-09-13] MEDS: ASPIRIN 81 MG TAB.CHEW PO SCH (08:27)
[2021-09-13] MEDS: VIT B CMPLX 3/FA/VIT C/BIOTIN 1 TAB TABLET PO SCH (08:28)
[2021-09-13] MEDS: CINACALCET HCL 30 MG TABLET PO SCH (08:28)
[2021-09-13] MEDS: CALCIUM ACETATE 667 MG CAP/TAB PO SCH ×3 (08:28→17:38)
[2021-09-13] MEDS: AMLODIPINE BESYLATE 10 MG TABLET PO SCH (08:28)
[2021-09-13] MEDS: LABETALOL HCL (100MG) 100 MG TABLET PO SCH ×3 (08:30→16:33)
[2021-09-13] MEDS: ALLOPURINOL 100 MG TABLET PO SCH (08:31)
[2021-09-13 08:46] LABS: BILIRUBIN,DIRECT 3.4 mg/dL (0.0-0.2)
[2021-09-13 08:55] LABS: BILIRUBIN,TOTAL 4.9 mg/dL (0.2-1.0)
[2021-09-13] MEDS ORDERED: FENOFIBRATE NANOCRYS (145 MG) 145 MG TABLET PO SCH (09:00)
[2021-09-13 11:38] LABS: BASOPHILS # (AUTO) 0.1 K/uL (0.0-0.2); BASOPHILS % (AUTO) 0.6 % (0.0-2.0); EOSINOPHILS % (AUTO) 3.5 % (0.0-6.0); HEMATOCRIT 22 % (39-51); HEMOGLOBIN 7.4 g/dL (13.5-17.5); LYMPHOCYTES # (AUTO) 1.1 K/uL (0.8-4.8); LYMPHOCYTES % (AUTO) 11.5 % (20.0-44.0); MEAN CORPUSCULAR HGB CONC 34 g/dl (31.0-36.0); MEAN CORPUSCULAR VOLUME 99 fL (80-96); MONOCYTES # (AUTO) 0.7 K/uL (0.1-1.30); MONOCYTES % (AUTO) 7.6 % (2.0-12.0); NEUTROPHILS # (AUTO) 7.6 K/uL (1.8-8.9); NEUTROPHILS % (AUTO) 76.8 % (43.0-81.0); PLATELET COUNT (AUTO) 299 K/uL (150-450); RED BLOOD CELL COUNT(AUTO) 2.21 MIL/uL (4.5-6.0); WHITE BLOOD COUNT (AUTO) 9.9 K/uL (4.3-11.0)
[2021-09-13 13:11] VITALS: BP 148/77
[2021-09-13 14:21] LABS: BAND % (MANUAL) 1 % (0.0-5.0); EOSINOPHILS % (MANUAL) 3 % (0-4); LYMPHOCYTES % (MANUAL) 9 % (16-48); MONOCYTES % (MANUAL) 3 % (0-11.0); NEUTROPHILS % (MANUAL) 82 (42-76)
--- NOTE | 2021-09-13 17:54 | NUR ---
RN NOTES PT C/O NAUSEA, PRN ZOFRAN 4MG/2ML IVP ADMINISTERED AT 1752. WILL CONTINUE TO MONITOR AND REASSESS PT.
--- NOTE | 2021-09-13 18:56 | NUR ---
PRECISION HONER CLOSING NOTES: PATIENT IS AWAKE AT THIS TIME RESTING IN BED. ON SEMI-ALLEN'S POSITION. A/O X4. ABLE TO MAKE NEEDS KNOWN. ON ROOM AIR AT THIS TIME, TOLERATING WELL, NO SOB NOTED. ON TELE MONITOR WITH CURRENT READING OF NSR WITH BBB'S, HR ON THE 80'S BPM. NO C/O CARDIAC DISTRESS VERBALIZED. PT. HAS RIGHT IJ HD DIALYSIS CATHETER, NO BLEEDING OBSERVED AT SITE, DRESSING C/D/I. PT. HAS RIGHT ABDOMEN PERITONEAL TUBING INTACT, DRESSING IS C/D/I AND SECURED WITH TAPE. PT. HAS LEFT AC #20 SALINE LOCKED, PATENT AND FLUSHING WELL. SAFETY MEASURES MAINTAINED: CALL LIGHT WITHIN REACH, BED IN LOWEST AND LOCKED POSITION, SR-UP X2.. WILL ENDORSE CONTINUITY OF CARE TO ORDER PACKER OR PACKAGER RN.
--- NOTE | 2021-09-13 19:05 | NUR ---
TUG HAND OPENING NOTES: RECEIVED PATIENT IN BED, AWAKE, NO S/S OF DISTRESS NOTED. NO COMPLAIN OF PAIN. CALL LIGHT WITHIN REACH. BED IN LOWEST AND LOCKED POSITION. NO BLEEDING NOTED. ON TELE MONITOR WITH SINUS 70 WITH BBB.
[2021-09-13 20:04] VITALS: BP 136/77
[2021-09-13] MEDS: CEFEPIME 1 GM in IV D5W 50 ML IV SCH (20:37)
[2021-09-13] MEDS: ATORVASTATIN 10 MG TABLET PO SCH (21:45)
[2021-09-13] MEDS: *INSULIN REGULAR(HUMULIN R)HUM 100 UNIT/ML VIAL SQ PRN (21:47)
[2021-09-14 01:17] VITALS: BP 149/91
[2021-09-14 04:10] VITALS: BP 152/88
[2021-09-14 06:28] LABS: BASOPHILS # (AUTO) 0.1 K/uL (0.0-0.2); BASOPHILS % (AUTO) 1.1 % (0.0-2.0); EOSINOPHILS % (AUTO) 2.9 % (0.0-6.0); HEMATOCRIT 21 % (39-51); HEMOGLOBIN 7.1 g/dL (13.5-17.5); LYMPHOCYTES # (AUTO) 1.1 K/uL (0.8-4.8); LYMPHOCYTES % (AUTO) 11.3 % (20.0-44.0); MEAN CORPUSCULAR HGB CONC 34 g/dl (31.0-36.0); MEAN CORPUSCULAR VOLUME 100 fL (80-96); MONOCYTES # (AUTO) 0.6 K/uL (0.1-1.30); NEUTROPHILS # (AUTO) 7.6 K/uL (1.8-8.9); NEUTROPHILS % (AUTO) 78.7 % (43.0-81.0); PLATELET COUNT (AUTO) 303 K/uL (150-450); WHITE BLOOD COUNT (AUTO) 9.6 K/uL (4.3-11.0)
[2021-09-14] MEDS: INSULIN REGULAR, HUMAN 100 UNIT/ML 3 ML VIAL SQ PRN ×3 (06:42→16:48)
[2021-09-14 06:44] LABS: CALCIUM, SERUM 9.8 mg/dL (8.5-10.1); MAGNESIUM 2.1 mg/dL (1.8-2.4); PHOSPHORUS 4.9 mg/dL (2.5-4.9)
--- NOTE | 2021-09-14 07:25 | NUR ---
AIRCRAFT DISPATCHER OPENING NOTE RECEIVED PT AWAKE IN BED LOOKING AT HIS PHONE. PT A/O X4, ABLE TO MAKE NEEDS KNOWN. IN RA, TOLERATING WELL. ON DITCH INSPECTOR WITH CURRENT READING OF SINUS WITH BBB, HR 70. NO C/O OF CARDIAC DISTRESS VOICED AT THIS TIME. IV ACCESS IN LAC G #20, INTACT AND PATENT. RIGHT INTERNAL JUGULAR DIALYSIS SITE INTACT. SAFETY MEASURES IN PLACE: BED IN LOWEST AND LOCKED POSITION. SIDE RAILS UP X2, AND CALL LIGHT WITHIN REACH. WILL CONTINUE TO MONITOR PT.
[2021-09-14 07:34] LABS: CREATININE 11.3 mg/dL (0.6-1.3)
--- NOTE | 2021-09-14 08:00 | NUR ---
RN NOTE RECEIVED A CALL FROM Dizko SamuraiLUDIVINA AT 0735 REPORTED CRITICAL LAB VALUE OF CREATININE 11.3. DR. SMITH MADE AWARE WITH NO NEW ORDER AT THIS TIME.
[2021-09-14] MEDS: LEVOTHYROXINE SODIUM 112 MCG TABLET PO SCH (08:06)
[2021-09-14] MEDS: PANTOPRAZOLE 40 MG TABLET.DR PO SCH ×2 (08:06→15:58)
[2021-09-14] MEDS: BLOOD SUGAR DIAGNOSTIC 1 EACH STRIP IN SCH ×4 (08:06→22:23)
[2021-09-14] MEDS: CINACALCET HCL 30 MG TABLET PO SCH (08:14)
[2021-09-14] MEDS: ASPIRIN 81 MG TAB.CHEW PO SCH (08:14)
[2021-09-14] MEDS: CALCIUM ACETATE 667 MG CAP/TAB PO SCH ×3 (08:14→17:26)
[2021-09-14] MEDS: VIT B CMPLX 3/FA/VIT C/BIOTIN 1 TAB TABLET PO SCH (08:14)
[2021-09-14] MEDS: SEVELAMER CARBONATE 800 MG TABLET PO SCH ×3 (08:14→17:26)
[2021-09-14] MEDS: ALLOPURINOL 100 MG TABLET PO SCH (08:14)
[2021-09-14] MEDS: AMLODIPINE BESYLATE 10 MG TABLET PO SCH (09:00)
[2021-09-14] MEDS: LABETALOL HCL (100MG) 100 MG TABLET PO SCH ×3 (09:00→17:27)
[2021-09-14] MEDS: LOSARTAN POTASSIUM 50 MG TABLET PO SCH (09:00)
--- NOTE | 2021-09-14 09:39 | NUR ---
RN NOTE ALL BLOOD PRESSURE MEDICATIONS DUE AT 0900 NOT ADMINISTERED. PT IS CURRENTLY ON ONGOING DIALYSIS.
--- NOTE | 2021-09-14 10:00 | NUR ---
RN NOTE HD STARTED BY DIALYSIS NURSE ABIGAIL VIA R INTERNAL JUGULAR.
--- NOTE | 2021-09-14 12:59 | NUR ---
RN NOTE HEMODIALYSIS COMPLETED WITH 2L OUT. HD NURSE PLACED DRY PRESSURE DRESSING ON R INTERNAL JUGULAR DIALYSIS SITE. NO ACTIVE BLEEDING NOTED. S/P HD V/S: BP 144/87, P 72, R 18, AND T 98.0 F. Addendum: 09/14/21 at 1306 by CASSIE LEVIN RN DELETE V/S ERROR V/S ENTRY CORRECTION: CURRENT V/S POST HD IS BP 155/90, P 76, R 18, TEMP 98.0F, SPO2 98%.
[2021-09-14] MEDS: VANCOMYCIN POST DIALYSIS 500MG IV PRN ×2 (13:06)
--- NOTE | 2021-09-14 14:30 | NUR ---
RT Patient found on room air. No SOB noted.
--- NOTE | 2021-09-14 19:15 | NUR ---
IAP DISPLAYS ANALYST OPENING NOTES: RECEIVED PATIENT IN BED, AWAKE, A/O X4. NO S/S OF DISTRESS NOTED. NO COMPLAIN OF PAIN. CALL LIGHT WITHIN REACH. BED IN LOWEST AND LOCKED POSITION.
--- NOTE | 2021-09-14 19:20 | NUR ---
PATIENT IS ON TELE MONITOR WITH SINUS 66 WITH BBB.
--- NOTE | 2021-09-14 19:22 | NUR ---
SPOOLING MACHINE OPERATOR CLOSING NOTE PT AWAKE IN BED WITH FAMILY AT BEDSIDE. PT A/O X4, ABLE TO MAKE NEEDS KNOWN. IN RA, TOLERATING WELL. ON STAFF TRAINER WITH CURRENT READING OF SINUS WITH BBB, HR 69. NO C/O OF CARDIAC DISTRESS VOICED AT THIS TIME. IV ACCESS IN JUAN MIDLINE G #18 SL AND RFA G #22 SL, INTACT AND PATENT. RIGHT INTERNAL JUGULAR DIALYSIS SITE INTACT. PERITONEAL DIALYSIS SITE WITH DRESSING IN PLACE. ALL NEEDS ATTENDED. KEPT CLEAN AND COMFORTABLE. SAFETY MEASURES IN PLACE: BED IN LOWEST AND LOCKED POSITION. SIDE RAILS UP X2, AND CALL LIGHT WITHIN REACH. ENDORSED TO ELECTRICAL CONTACTS ADJUSTER NURSE FOR ANA.
[2021-09-14 20:00] VITALS: BP 121/78
[2021-09-14] MEDS: ATORVASTATIN 10 MG TABLET PO SCH (22:07)
[2021-09-14] MEDS: CEFEPIME 1 GM in IV D5W 50 ML IV SCH (22:08)
[2021-09-14] MEDS: *INSULIN REGULAR(HUMULIN R)HUM 100 UNIT/ML VIAL SQ PRN (22:22)
[2021-09-15] VITALS: BP 165/87
[2021-09-15 04:00] VITALS: BP 142/95
[2021-09-15 06:29] LABS: BASOPHILS % (AUTO) 0.3 % (0.0-2.0); EOSINOPHILS % (AUTO) 3.2 % (0.0-6.0); HEMATOCRIT 22 % (39-51); HEMOGLOBIN 7.2 g/dL (13.5-17.5); LYMPHOCYTES # (AUTO) 1.2 K/uL (0.8-4.8); LYMPHOCYTES % (AUTO) 12.2 % (20.0-44.0); MEAN CORPUSCULAR HGB CONC 33 g/dl (31.0-36.0); MEAN CORPUSCULAR VOLUME 101 fL (80-96); MONOCYTES # (AUTO) 0.6 K/uL (0.1-1.30); MONOCYTES % (AUTO) 5.8 % (2.0-12.0); NEUTROPHILS # (AUTO) 7.9 K/uL (1.8-8.9); NEUTROPHILS % (AUTO) 78.5 % (43.0-81.0); PLATELET COUNT (AUTO) 323 K/uL (150-450); RED BLOOD CELL COUNT(AUTO) 2.19 MIL/uL (4.5-6.0)
[2021-09-15] MEDS: INSULIN REGULAR, HUMAN 100 UNIT/ML 3 ML VIAL SQ PRN (06:51)
[2021-09-15] MEDS: BLOOD SUGAR DIAGNOSTIC 1 EACH STRIP IN SCH ×3 (06:52→16:48)
--- NOTE | 2021-09-15 06:52 | NUR ---
blood sugar checked= 104, no insulin given.
[2021-09-15 07:16] LABS: CALCIUM, SERUM 9.5 mg/dL (8.5-10.1); MAGNESIUM 1.9 mg/dL (1.8-2.4); POTASSIUM 4.2 mmol/L (3.5-5.1)
[2021-09-15 07:20] LABS: CREATININE 8.3 mg/dL (0.6-1.3)
--- NOTE | 2021-09-15 07:54 | NUR ---
RN OPENING NOTE PATIENT RECEIVED IN BED, AO X 4, ABLE TO RESPONDS ALL STIMULI. IN NO ACUTE DISTRESS NOTED. RESPIRATORY EVEN AND UNLABORED ON ROOM AIR. SKIN IS WARM TO TOUCH, KEEP CLEAN/DRY. KEPT ELEVATED HOB FOR ENSURE AIRWAY AND ASPIRATION PRECAUTION, ALSO LOWEST POSITION OF THE BED, S/R UP X 3, BED ALARM IS ON AT ALL THE TIMES. ALL SAFETY PRECAUTION APPLIED. CALL LIGHT WITHIN REACH, WILL CONTINUE TO MONITOR.
[2021-09-15] MEDS: LEVOTHYROXINE SODIUM 112 MCG TABLET PO SCH (08:07)
[2021-09-15] MEDS: PANTOPRAZOLE 40 MG TABLET.DR PO SCH ×2 (08:07→16:52)
[2021-09-15] MEDS: SEVELAMER CARBONATE 800 MG TABLET PO SCH ×3 (08:16→17:08)
[2021-09-15] MEDS: CALCIUM ACETATE 667 MG CAP/TAB PO SCH ×3 (08:16→17:08)
[2021-09-15] MEDS: ASPIRIN 81 MG TAB.CHEW PO SCH (09:20)
[2021-09-15] MEDS: CINACALCET HCL 30 MG TABLET PO SCH (09:21)
[2021-09-15] MEDS: VIT B CMPLX 3/FA/VIT C/BIOTIN 1 TAB TABLET PO SCH (09:21)
[2021-09-15] MEDS: ALLOPURINOL 100 MG TABLET PO SCH (09:21)
[2021-09-15] MEDS: LABETALOL HCL (100MG) 100 MG TABLET PO SCH ×3 (09:22→16:52)
[2021-09-15] MEDS: LOSARTAN POTASSIUM 50 MG TABLET PO SCH (09:22)
[2021-09-15] MEDS: AMLODIPINE BESYLATE 10 MG TABLET PO SCH (09:24)
--- NOTE | 2021-09-15 12:16 | NUR ---
RIJ HD catheter discontinued via aseptic technique, pressure to RIJ site X 5 mins, hemostasis achieved, no bleeding noted, Adelaide at bedside, instructed to check site for any bleeding q 15 mins, verbalized understanding. Dressing clean, dry and intact.
[2021-09-15] MEDS: *INSULIN REGULAR(HUMULIN R)HUM 100 UNIT/ML VIAL SQ PRN (16:45)
[2021-09-15 16:52] VITALS: BP 152/72
--- NOTE | 2021-09-15 18:55 | NUR ---
PATIENT DISCHARGE TO HOME, GIVEN DISCHARGE INSTRUCTIONS AND EDUCATED DIET PHYSICAL ACTIVITY REGIME. PATIENT IN NO ACUTE DISTRESS OBSERVED. VITAL SIGNS ARE STABLE.
== END 2021-09-15 19:00 | disposition home or self-care (01) | DRG 871 ==
LOC: ER 20:25 → TRANSITION 09-10 01:21 → TELE 09-10 07:46
PROVIDERS: ADMIT Student in an Organized Health Care Education/Training Program; ATTEND Student in an Organized Health Care Education/Training Program
PROC: 5A1D70Z Performance of Urinary Filtration, Intermittent, Less than 6 Hours Per Day (ICD-10-PCS; principal; 2021-09-10)
PROC: 05HY33Z Insertion of Infusion Device into Upper Vein, Percutaneous Approach (ICD-10-PCS; 2021-09-11)
PROC: 05H933Z Insertion of Infusion Device into Right Brachial Vein, Percutaneous Approach (ICD-10-PCS; 2021-09-14)
DX: A41.9 Sepsis, unspecified organism (principal); K85.90 Acute pancreatitis without necrosis or infection, unspecified; N18.6 End stage renal disease; E43 Unspecified severe protein-calorie malnutrition; E87.1 Hypo-osmolality and hyponatremia; I12.0 Hypertensive chronic kidney disease with stage 5 chronic kidney disease or end stage renal disease; Z68.41 Body mass index [BMI] 40.0-44.9, adult; Z20.822 Contact with and (suspected) exposure to COVID-19; E11.22 Type 2 diabetes mellitus with diabetic chronic kidney disease; E88.09 Other disorders of plasma-protein metabolism, not elsewhere classified; I25.10 Atherosclerotic heart disease of native coronary artery without angina pectoris; Z95.5 Presence of coronary angioplasty implant and graft; Z99.2 Dependence on renal dialysis; M10.9 Gout, unspecified; Z91.018 Allergy to other foods; R74.01 Elevation of levels of liver transaminase levels; D64.9 Anemia, unspecified; K82.8 Other specified diseases of gallbladder; E78.1 Pure hyperglyceridemia; K74.60 Unspecified cirrhosis of liver; Z79.82 Long term (current) use of aspirin; Z79.899 Other long term (current) drug therapy; E66.01 Morbid (severe) obesity due to excess calories; K57.30 Diverticulosis of large intestine without perforation or abscess without bleeding
CPT/HCPCS: 36410; 36415; 70450-TC; 71045-TC; 76700-TC; 80048-TC; 80053-TC; 80061-TC; 80076-TC; 80202-TC; 82962-TC; 83690-TC; 83735-TC; 84100-TC; 84484-TC; 85025-TC; 85027-TC; 85730-TC; 86706; 87040-TC; 87070-TC; 87340; 90935-TC; 93307-TC; 94799-TC; 97116-TC; A6253; A6403; C9803; G0378; J0692; J0696; J1815; J2270; J2405; J3370; J7030; J7050; J7060